=== PATIENT | male | born 1980 | race Caucasian/White ===

== ENCOUNTER 2020-10-21 12:50 | Emergency (ER) | payer MEDICAID ==
[~2020-10-21] VITALS: Ht 167.6 cm; Wt 88.5 kg
[2020-10-21 12:53] VITALS: BP 163/98; Ht 167.6 cm; Wt 88.5 kg
== END 2020-10-21 13:52 | disposition home or self-care (01) ==
LOC: ED 12:50
DX: R19.7 Diarrhea, unspecified (principal); R50.9 Fever, unspecified; R10.816 Epigastric abdominal tenderness; I10 Essential (primary) hypertension